=== PATIENT | male | born 1935 | race Caucasian/White ===

== ENCOUNTER → 2017-03-20 | Outpatient (CLI) | payer MEDICARE, BC ==
[~2017-03-20] MED LIST: ALEVE220 MG PO; ASCORBIC ACID500 MG PO; ASPIRIN (CHILDR81 MG PO; ASPIRIN325 MG PO; BACITRACIN OPH3.5 GM TOP; CALCIUM600 MG PO; DIPROLENE AF 00.05 % TOP; FISH OIL 1,2001 EACH PO; HYTRIN UD5 MG PO; LUTEIN20 MG PO; MEN'S MULTI-VI1 EACH PO; MOBIC15 MG PO; NORCO 5-325 TA1 EACH PO; PLAVIX75 MG PO; VITAMIN E400 UNI2 PO; ZOCOR40 MG PO; [UNRECOGNIZED DRUG - REMARK]
[2017-03-20 09:37] LABS: CREATININE 1.2 mg/dL (0.6-1.3)
== END | disposition disaster alternative care site (69) ==
LOC: GRAD 08:53 → GLAB 09:00 → GRAD 09:00
PROVIDERS: Surgery Vascular Surgery
DX: I71.4 Abdominal aortic aneurysm, without rupture (principal); N40.0 Benign prostatic hyperplasia without lower urinary tract symptoms; N42.89 Other specified disorders of prostate; K57.30 Diverticulosis of large intestine without perforation or abscess without bleeding; Z95.828 Presence of other vascular implants and grafts
CPT/HCPCS: Q9967

== ENCOUNTER → 2017-06-06 | Day surgery (SDC) | payer MEDICARE, BC ==
[~2017-06-06] VITALS: Ht 188 cm; Wt 106.4 kg
--- NOTE | ~2017-06-06 | OR ---
PATIENT'S NAME: ADAM RODAS [facility] AGE: 82 Y [address] ROOM: [place] [address] LOCATION: [facility] [place] DATE: 06/06/2017 OR/Procedure Report DISCHARGE DATE: FAMILY PHYSICIAN: LORRAINE PERRIN MD ATTENDING PHYSICIAN: HILARY PETERSEN SURGEON: Hilary Petersen MD INTERNAL AUDIT MANAGER: Dr. José Miguel Garcia. 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 POSTOPERATIVE DIAGNOSIS: Basal cell carcinoma of nasal tip. PROCEDURE PERFORMED: 1. Wide local excision of basal cell carcinoma measuring 12 x 12 mm. 2. Local tissue rearrangement, measuring 36 x 24 mm. ANESTHESIA: Monitored anesthesia care. BLOOD LOSS: 5 mL. SPECIMEN: Nasal tip lesion. FINDINGS: Frozen section showed no residual basal carcinoma in the specimen. INDICATION: Mr. Rodas is an 82-year-old male with a basal cell carcinoma of the nasal tip. This was biopsied by Dr. Lewis and shown to have a deep positive margin. It was recommend he undergo a wide local excision, with the local flap closure. PROCEDURE DETAILS: The patient was seen in the preoperative holding area. Informed consent was obtained from the patient for wide local excision and local tissue rearrangement of nasal tip lesion. After full knowledge of the risks, benefits, and alternatives, the patient wished to proceed. The patient was taken the operating room, placed on the operating table. Monitored anesthesia care was initiated without difficulty. A time-out was performed identifying the patient as well as procedure to be performed. We began by marking a lesion and with 4 mm margin around the scar. We then designed a laterally based bilobed flap. These incisions were infiltrated with 1% lidocaine with 1:100,000 parts epinephrine mixed one-to-one with 0.25% Marcaine with epinephrine. The patient was then prepped and draped in normal sterile fashion. We began by excising the basal cell carcinoma with margin. We made our incision with a 15 blade down to this SMAS layer. There was oriented and PATIENT'S NAME: ADAM RODAS [facility] AGE: 82 Y [address] ROOM: [place] [address] LOCATION: [facility] [place]MIT DATE: 06/06/2017 OR/Procedure Report DISCHARGE DATE: FAMILY PHYSICIAN: LORRAINE PERRIN MD ATTENDING PHYSICIAN: HILARY PETERSEN passed off for frozen section. After the frozen section showed negative margins, we then began elevating flaps for closure. We made our incision through the bilobed flap, which was laterally based. In which we started with sub SMAS layer. We widely undermined the surrounding tissue for a tension- free closure. We transposed the flap into the defect using 5-0 Monocryl suture in a deep buried fashion. We then closed the secondary defect using the 2nd limb of the bilobed and finally close the tissue defect primarily using 4-0 Monocryl suture in a deep buried fashion. We closed the skin using 5-0 fast gut. This marked the conclusion of procedure. All sponge and needle counts were correct x2. The patient was passed back to Anesthesia, where he was awoke without difficulty and transferred to the PACU in stable condition. JOSÉ MIGUEL GARCIA, ENT RESIDENT PGY5 FOR HILARY PETERSEN MD JY/modl /[id number] CC: Tammy Lewis MD d: 06/06/17 1412 t: 06/27/17 1136, OPERATIVE SUMMARY
== END ==
LOC: GPOC 05-30 11:00 → GSDC 06:00
PROC: 0HX1XZZ Transfer Face Skin, External Approach (ICD-10-PCS; principal; 2017-06-06)
DX: C44.311 Basal cell carcinoma of skin of nose (principal); E78.00 Pure hypercholesterolemia, unspecified; I71.4 Abdominal aortic aneurysm, without rupture; I73.9 Peripheral vascular disease, unspecified; I10 Essential (primary) hypertension; Z79.82 Long term (current) use of aspirin; Z79.899 Other long term (current) drug therapy; Z86.718 Personal history of other venous thrombosis and embolism
CPT/HCPCS: J2001; J7120